=== PATIENT | female | born 1945 | race Caucasian/White ===

== ENCOUNTER → 2019-01-29 | Outpatient (CLI) | payer MEDICARE, BC ==
--- NOTE | 2019-01-29 14:25 | CR ---
[id number] RAD/DEXA Scan Hip Pelvis Spine EXAM: DEXA INDICATION: Postmenopausal female with history of osteoporosis. COMPARISON: April 05, 2017. DISCUSSION: Bone mineral density in the left radius 33% is 0.407 gm/square cm corresponding to a T score of -5.3. This has increased 13.7% relative to the previous examination. Bone mineral density in both femoral necks is 0.622 gm/square cm corresponding to a T score of -3.0. Bone mineral density in both hips is 0.642 gm/square cm corresponding to a T score of -2.9. The total hip densities of increased 4.7 percent relative to the prior study. The calculated 10 year risk of major osteoporotic fracture is 27% and of hip fracture is 10.6%. The hips were not assessed. IMPRESSION: 1. Osteoporotic bone mineral density. 2. Interval increase in the forearm and hip densities Jeffery Nava MD 01/29/19 4727 Thank you for allowing us to participate in the care of your patient.
== END ==
LOC: VM.DI 13:10
PROVIDERS: ATTEND Family Medicine
DX: M81.0 Age-related osteoporosis without current pathological fracture (principal)
CPT/HCPCS: 77080

== ENCOUNTER 2019-02-05 12:05 | Emergency (ER) | payer MEDICARE, BC ==
[2019-02-05] MEDS ORDERED: Sodium Chloride 0.9% 1,000 ML IV ONE (12:52)
[2019-02-05 13:26] LABS: CHLORIDE,CL 96 mmol/L (98-107); SODIUM,NA 130 mmol/L (136-145)
[2019-02-05 13:27] LABS: ANION GAP 12.8 mmol/L (10-20)
[2019-02-05 13:39] VITALS: BP 111/41
--- NOTE | 2019-02-05 13:47 | EDM.PDOC ---
ED HPI GENERAL MEDICAL PROBLEM - General Stated Complaint: Dizziness Time Seen by Provider: 02/05/19 12:25 Source of Information: Reports: Patient, Family History Limitations: Reports: No Limitations - History of Present Illness INITIAL COMMENTS - FREE TEXT/NARRATIVE: Pt presents with c/o weakness and dizziness. Started today. pt with no other complaints at this time. Onset: Today Location: Reports: Head Improves with: Reports: None Worsens with: Reports: None Treatments MANAGER STAR: Reports: EKG, IV/IO - Related Data Allergies Allergy/AdvReac Type Severity Reaction Status Date / Time buspirone HCl [From BuSpar] Allergy Cannot Verified 02/05/19 13:18 Remember metformin Allergy Cannot Verified 02/05/19 13:18 Remember atorvastatin calcium AdvReac Muscle Verified 02/05/19 13:18 [From Lipitor] Weakness codeine AdvReac Nausea and Verified 02/05/19 13:18 Vomiting hydrocodone AdvReac Hallucinati Verified 02/05/19 13:18 ons Home Meds: Home Meds Albuterol Sulfate [Albuterol Sulfate HFA] 2 puff INH ASDIRECTED PRN 07/15/13 [ History] Aspirin [Halfprin] 81 mg PO DAILY 07/15/13 [History] Lisinopril [Zestril] 10 mg PO DAILY 07/15/13 [History] Nitroglycerin [Nitrostat] 0.4 mg SL ASDIRECTED PRN 07/15/13 [History] Pioglitazone [Actos] 30 mg PO DAILY 07/15/13 [History] ALPRAZolam [Xanax] 0.25 mg PO BID PRN #0 07/18/13 [Rx] Cyanocobalamin (Vitamin B-12) [B-12] 1,000 mcg PO DAILY 04/05/15 [History] Montelukast [Singulair] 10 mg PO BEDTIME 04/05/15 [History] Denosumab [Prolia] 1 Q6M 04/08/18 [History] Gabapentin [Neurontin] 1 cap PO BID 04/08/18 [History] Ipratropium [Atrovent 0.06% Nasal [place]] 2 sprays 04/08/18 [History] Cetirizine [ZyrTEC] 10 mg PO DAILY 02/05/19 [History] Rosuvastatin Calcium [Crestor] 40 mg PO DAILY 02/05/19 [History] Umeclidinium [place] [Incruse Ellipta*] 1 puff IH DAILY 02/05/19 [History] hydroCHLOROthiazide [Hydrochlorothiazide] 25 mg PO DAILY 02/05/19 [History] tiZANidine HCl [Zanaflex] 2 mg PO TID PRN 02/05/19 [History] Past Medical History HEENT History: Reports: Cataract Cardiovascular History: Reports: CAD, Heart Failure, High Cholesterol, Hypertension, SOB on Exertion Other Cardiovascular History: valvular heart disease, mild carotid disease, thoracic aortic aneurysm without rupture Respiratory History: Reports: Asthma, COPD Gastrointestinal History: Reports: Colon Polyp Other Genitourinary History: acute kidney injury 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 Neurological History: Reports: Other (See Below) Other Neuro History: impaired cognition, insomnia Psychiatric History: Reports: Anxiety Endocrine/Metabolic History: Reports: Diabetes, Type II, Osteoporosis, Vitamin D Deficiency Other Endocrine/Metabolic History: Not treated Hematologic History: Other Hematologic History: vitamin D deficiency Oncologic (Cancer) History: Reports: None Dermatologic History: Reports: Other (See Below) Other Dermatologic History: pigmented skin lesion - Past Surgical History HEENT Surgical History: Reports: Cataract Surgery Cardiovascular Surgical History: Reports: Valve Replacement Other Cardiovascular Surgeries/Procedures: aortic root valve replacement; 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; reexporation for postop hemorrhage, pre and post op stroke; thoracic aortic aneuysm repair GI Surgical History: Reports: Colonoscopy Female Surgical History: Reports: Tubal Ligation Endocrine Surgical History: Reports: None Neurological Surgical History: Reports: Vertebroplasty Social & Family History - Tobacco Use Smoking Status *Q: Never Smoker ED ROS GENERAL - Review of Systems Review Of Systems: See Below Constitutional: Reports: Weakness HEENT: Reports: No Symptoms Respiratory: Reports: No Symptoms Cardiovascular: Reports: No Symptoms Endocrine: Reports: No Symptoms GI/Abdominal: Reports: No Symptoms : Reports: No Symptoms Musculoskeletal: Reports: No Symptoms Neurological: Reports: Dizziness ED EXAM, DIZZINESS - Physical Exam Exam: See Below Text/Narrative:: Pt via ems in no distress at this time. Had recieved 250 cc fluid in the field, no improvement ekg SR, labs noted slight dehydration after 1500 cc nacl pt is feeling better no dizziness at this time. PT instructed to rest today, continue hydration, follow up with pcp for continued care Exam Limited By: No Limitations General Appearance: Alert, WD/WN, No Apparent Distress Eye Exam: Bilateral Eye: Normal Inspection Ears: Normal External Exam, Normal Canal, Hearing Grossly Normal, Normal TMs Nose: Normal Inspection, Normal Mucosa, No Blood Throat/Mouth: Normal Inspection Head Exam: Atraumatic, Normocephalic Neck: Normal Inspection, Supple, Non-Tender Respiratory/Chest: No Respiratory Distress, Lungs Clear, Normal Breath Sounds, No Accessory Muscle Use, Chest Non-Tender Cardiovascular: Normal Peripheral Pulses, Regular Rate, Rhythm GI/Abdominal: Normal Bowel Sounds, Soft, Non-Tender Neurological: Alert, Normal Mood/Affect, Normal Dorsiflexion, CN II-XII Intact Course - Vital Signs Last Recorded V/S: Last Vital Signs Temp 36.2 C 02/05/19 12:10 Pulse 65 02/05/19 13:38 Resp 16 02/05/19 13:38 BP 111/41 L 02/05/19 13:38 Pulse Ox 96 02/05/19 13:38 - Orders/Labs/Meds Orders: Active Orders 24 hr Category Date Time Status EKG 12 Lead [EKG Documentation Completion] [RC] STAT Care 02/05/19 12:51 Ordered UA RFX FILEMON AND CULT IF INDIC [URIN] Stat Lab 02/05/19 12:44 Ordered Sodium Chloride 0.9% @ Wide Open(1,000ml) Med 02/05/19 12:52 Ordered Sodium Chloride 0.9% [Normal Saline] 1,000 ml IV ONETIME Medication Orders Sodium Chloride (Normal Saline) 1,000 mls @ 999 mls/hr IV ONETIME ONE Stop: 02/05/19 13:52 Last Admin: 02/05/19 12:10 Dose: 999 mls/hr Labs: Laboratory Tests 02/05/19 02/05/19 Range/Units 12:55 12:55 WBC 5.2 (4.0-10.0) x10^3/uL RBC 3.63 L (4.00-5.50) x10^6/uL Hgb 11.0 L D (12.0-16.0) g/dL Hct 32.7 L (33.0-47.0) % MCV 90.1 D (78.0-93.0) fL MCH 30.3 (26.0-32.0) pg MCHC 33.6 (32.0-36.0) g/dL RDW Coeff of Rizwan 14.9 (10.0-15.0) % Plt Count 163 (130-400) x10^3/uL Neut % (Auto) 70.9 (50.0-80.0) % Lymph % (Auto) 14.0 L (25.0-50.0) % [place] % (Auto) 10.7 (2.0-11.0) % Eos % (Auto) 3.8 (0.0-4.0) % Baso % (Auto) 0.6 (0.2-1.2) % Sodium 130 L (136-145) mmol/L Potassium 4.8 (3.5-5.1) mmol/L Chloride 96 L (98-107) mmol/L Carbon Dioxide 26 (21-32) mmol/L Anion Gap 12.8 (10-20) mmol/L BUN 33 H (7-18) mg/dL Creatinine 1.4 H (0.55-1.02) mg/dL Est Cr Clr Drug Dosing TNP Estimated GFR (MDRD) 37 Glucose 112 H (74-106) mg/dL Calcium 7.8 L (8.5-10.1) mg/dL Corrected Calcium 8.28 L (8.5-10.1) mg/dL Total Bilirubin 0.9 (0.2-1.0) mg/dL AST 20 (15-37) U/L ALT 15 (14-59) U/L Alkaline Phosphatase 86 (46-116) U/L Total Protein 6.2 L (6.4-8.2) g/dL Albumin 3.4 (3.4-5.0) g/dL Globulin 2.8 Albumin/Globulin Ratio 1.21 Meds: Medications Generic Name Dose Route Start Last Admin Trade Name Freq PRN Reason Stop Dose Admin Sodium Chloride 1,000 mls @ 999 mls/hr 02/05/19 12:52 02/05/19 12:10 Normal Saline IV 02/05/19 13:52 999 mls/hr ONETIME ONE Administration Departure - Departure Time of Disposition: 13:54 Disposition: Home, Self-Care 01 Condition: Good Clinical Impression: Dehydration - Discharge Information *PRESCRIPTION DRUG MONITORING PROGRAM REVIEWED*: Not Applicable *COPY OF PRESCRIPTION DRUG MONITORING REPORT IN PATIENT DELL: Not Applicable Instructions: Dehydration, Adult, [id number] Referrals: May Pritchard MD [Primary Care Provider] - - My Orders Last 24 Hours: My Active Orders 02/05/19 12:44 UA RFX FILEMON AND CULT IF INDIC [URIN] Stat 02/05/19 12:51 EKG 12 Lead [EKG Documentation Completion] [RC] STAT 02/05/19 12:52 Sodium Chloride 0.9% @ Wide Open(1,000ml) Sodium Chloride 0.9% [Normal Saline] 1 ,000 ml IV ONETIME - Assessment/Plan Last 24 Hours: My Active Orders 02/05/19 12:44 UA RFX FIELMON AND CULT IF INDIC [URIN] Stat 02/05/19 12:51 EKG 12 Lead [EKG Documentation Completion] [RC] STAT 02/05/19 12:52 Sodium Chloride 0.9% @ Wide Open(1,000ml) Sodium Chloride 0.9% [Normal Saline] 1 ,000 ml IV ONETIME
== END 2019-02-05 14:05 | disposition home or self-care (01) ==
LOC: VM.ED 12:05
DX: E86.0 Dehydration (principal); I11.0 Hypertensive heart disease with heart failure; I50.9 Heart failure, unspecified; E11.9 Type 2 diabetes mellitus without complications; F41.9 Anxiety disorder, unspecified; J45.909 Unspecified asthma, uncomplicated; E78.00 Pure hypercholesterolemia, unspecified; Z88.5 Allergy status to narcotic agent; Z79.82 Long term (current) use of aspirin; Z79.51 Long term (current) use of inhaled steroids; Z79.899 Other long term (current) drug therapy; Z98.51 Tubal ligation status; Z88.8 Allergy status to other drugs, medicaments and biological substances
CPT/HCPCS: 36415; 80053; 85025; 93005; 96360; 99284; J7030

== ENCOUNTER 2019-02-11 13:28 | Emergency (ER) | payer MEDICARE, BC ==
[2019-02-11] MEDS ORDERED: Sodium Chloride 0.9% 500 ML IV ONE (13:36)
--- NOTE | 2019-02-11 13:42 | EDM.PDOC ---
ED HPI GENERAL MEDICAL PROBLEM - General Chief Complaint: Cardiovascular Problem Stated Complaint: WEEK, HIGH BP Time Seen by Provider: 02/11/19 13:30 Source of Information: Reports: Patient, EMS, Family History Limitations: Reports: No Limitations - History of Present Illness INITIAL COMMENTS - FREE TEXT/NARRATIVE: Patient states approximately one hour ago at home she had a dizziness episode lasted a few minutes upon standing up she felt like the room was spinning lasted maybe a few seconds to maybe a minute. She states this is happened about a week ago which she was worked up for in the ER here. She was discharged at that visit and has not followed up with her primary care provider. She also states her blood pressure was in the 70s per the patient via EMS. Patient states she got up normal this morning at breakfast has had one glass of water. She is went about her normal routine cleaning house and is felt fine until this occurred. She states she felt fine only for a few seconds she denies any chest pain shortness of breath loss of consciousness headache no vision changes no nausea vomiting diarrhea abdominal pain no black or bloody stools has been eating fine Just as dizziness and some generalized weakness. Associated Symptoms: Denies: Confusion, Chest Pain, Diaphoresis, Fever/Chills, Headaches, Loss of Appetite, Nausea/Vomiting, Shortness of Breath, Syncope - Related Data Allergies Allergy/AdvReac Type Severity Reaction Status Date / Time buspirone HCl [From BuSpar] Allergy Cannot Verified 02/11/19 14:36 Remember metformin Allergy Cannot Verified 02/11/19 14:36 Remember atorvastatin calcium AdvReac Muscle Verified 02/11/19 14:36 [From Lipitor] Weakness codeine AdvReac Nausea and Verified 02/11/19 14:36 Vomiting hydrocodone AdvReac Hallucinati Verified 02/11/19 14:36 ons Home Meds: Home Meds Albuterol Sulfate [Albuterol Sulfate HFA] 2 puff INH Q4H PRN 07/15/13 [History] Aspirin [Halfprin] 81 mg PO DAILY 07/15/13 [History] Lisinopril [Zestril] 20 mg PO DAILY 07/15/13 [History] Nitroglycerin [Nitrostat] 0.4 mg SL ASDIRECTED PRN 07/15/13 [History] Pioglitazone [Actos] 30 mg PO DAILY 07/15/13 [History] ALPRAZolam [Xanax] 0.25 mg PO BID PRN #0 07/18/13 [Rx] Cyanocobalamin (Vitamin B-12) [B-12] 1,000 mcg PO DAILY 04/05/15 [History] Montelukast [Singulair] 10 mg PO BEDTIME 04/05/15 [History] Denosumab [Prolia] 60 mg SQ Q6M 04/08/18 [History] Gabapentin [Neurontin] 1 cap PO BID 04/08/18 [History] Ipratropium [Atrovent 0.06% Nasal [place]] 2 sprays NASBOTH BID 04/08/18 [History] Cetirizine [ZyrTEC] 10 mg PO DAILY 02/05/19 [History] Rosuvastatin Calcium [Crestor] 40 mg PO DAILY 02/05/19 [History] Umeclidinium [place] [Incruse Ellipta*] 1 puff IH DAILY 02/05/19 [History] hydroCHLOROthiazide [Hydrochlorothiazide] 25 mg PO DAILY 02/05/19 [History] tiZANidine HCl [Zanaflex] 2 mg PO TID PRN 02/05/19 [History] Past Medical History HEENT History: Reports: Cataract Cardiovascular History: Reports: CAD, Heart Failure, High Cholesterol, Hypertension, SOB on Exertion Other Cardiovascular History: valvular heart disease, mild carotid disease, thoracic aortic aneurysm without rupture Respiratory History: Reports: Asthma, COPD Gastrointestinal History: Reports: Colon Polyp Other Genitourinary History: acute kidney injury 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 Neurological History: Reports: Other (See Below) Other Neuro History: impaired cognition, insomnia Psychiatric History: Reports: Anxiety Endocrine/Metabolic History: Reports: Diabetes, Type II, Osteoporosis, Vitamin D Deficiency Other Endocrine/Metabolic History: Not treated Hematologic History: Other Hematologic History: vitamin D deficiency Oncologic (Cancer) History: Reports: None Dermatologic History: Reports: Other (See Below) Other Dermatologic History: pigmented skin lesion - Past Surgical History HEENT Surgical History: Reports: Cataract Surgery Cardiovascular Surgical History: Reports: Valve Replacement Other Cardiovascular Surgeries/Procedures: aortic root valve replacement; 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; reexporation for postop hemorrhage, pre and post op stroke; thoracic aortic aneuysm repair GI Surgical History: Reports: Colonoscopy Female Surgical History: Reports: Tubal Ligation Endocrine Surgical History: Reports: None Neurological Surgical History: Reports: Vertebroplasty ED ROS GENERAL - Review of Systems Review Of Systems: See Below Constitutional: Reports: Weakness. Denies: No Symptoms, Fever, Chills, Diaphoresis, Decreased Appetite, Weight Loss HEENT: Reports: Vertigo, Other (Denies ringing and roaring a whistling in the ears). Denies: Ear Discharge, Eye Pain, Nose Pain, Sinus Problem, Throat Pain, Vision Change Respiratory: Reports: No Symptoms Cardiovascular: Reports: No Symptoms. Denies: Dyspnea on Exertion, Edema, Lightheadedness, Palpitations, PND, Syncope Endocrine: Reports: No Symptoms GI/Abdominal: Reports: No Symptoms : Reports: No Symptoms Musculoskeletal: Reports: No Symptoms Skin: Reports: No Symptoms Neurological: Reports: Dizziness, Weakness. Denies: Confusion, Headache, Numbness, Paresthesia, Pre-Existing Deficit, Seizure, Syncope, Tingling, Trouble Speaking, Difficulty Walking, Gait Disturbance Psychiatric: Reports: No Symptoms Hematologic/Lymphatic: Reports: No Symptoms Immunologic: Reports: No Symptoms ED EXAM, DIZZINESS - Physical Exam Exam: See Below Exam Limited By: No Limitations General Appearance: Alert, WD/WN, No Apparent Distress Eye Exam: Bilateral Eye: EOMI, PERRL Ears: Normal External Exam, Normal Canal, Hearing Grossly Normal, Normal TMs. No: Auricular Erythema Nose: Normal Inspection, Normal Mucosa, No Blood Throat/Mouth: Normal Inspection, Normal Lips, Normal Teeth, Normal Gums, Normal Oropharynx, Normal Voice, No Airway Compromise Head Exam: Atraumatic Vertigo: No: worsens with head to L Neck: Normal Inspection, Supple, Non-Tender, Full Range of Motion. No: Limited Range of Motion Respiratory/Chest: No Respiratory Distress, Lungs Clear, Normal Breath Sounds, No Accessory Muscle Use, Chest Non-Tender Cardiovascular: Normal Peripheral Pulses, Regular Rate, Rhythm, No Edema, No Gallop, No JVD, No Murmur, No Rub GI/Abdominal: Normal Bowel Sounds, Soft, Non-Tender, No Organomegaly, No Distention Neurological: Alert, Normal Mood/Affect, Normal Dorsiflexion, CN II-XII Intact, Normal Reflexes, No Motor/Sensory Deficits, Oriented x 3, Other (Cranial nerves II-12 are intact patient has 5 of 5 upper extremity and lower extremity with full range of motion equal business intelligence consultant negative pronator swelling normal facial sensation) Extremities: Normal Inspection, Normal Range of Motion, Non-Tender, No Pedal Edema Psychiatric: Normal Affect, Normal Mood Skin Exam: Warm, Dry, Intact, Normal Color, No Rash Course - Vital Signs Text/Narrative:: CBC BMP EKG normal saline 500 mL bolus EKG normal sinus rhythm findings Sodium 123 she has been low in the past but this is the lowest of the visits BUN/creatinine is slightly elevated Patient states she is not willing to be admitted or stay for observation she only wants to go home and states she'll follow with her primary care provider the next 24-48 hours for the workup says she feels fine now blood pressure is normalized to 130/68 Says her sodium has been low in the past she is okay with following fluid restrictions through the night eating some salty crackers and potato chips and have it rechecked in the next day or 2 - Orders/Labs/Meds Orders: Active Orders 24 hr Category Date Time Status EKG Documentation Completion [RC] STAT Care 02/11/19 13:35 Active Sodium Chloride 0.9% [Normal Saline] 1,000 ml Med 02/11/19 14:20 Active IV ONETIME Medication Orders Sodium Chloride (Normal Saline) 1,000 mls @ 999 mls/hr IV ONETIME ONE Stop: 02/11/19 15:20 Last Admin: 02/11/19 13:45 Dose: 999 mls/hr Labs: Laboratory Tests 02/11/19 02/11/19 Range/Units 13:45 13:45 WBC 6.7 (4.0-10.0) x10^3/uL RBC 4.11 (4.00-5.50) x10^6/uL Hgb 12.5 D (12.0-16.0) g/dL Hct 36.2 (33.0-47.0) % MCV 88.1 (78.0-93.0) fL MCH 30.4 (26.0-32.0) pg MCHC 34.5 (32.0-36.0) g/dL RDW Coeff of Rizwan 14.6 (10.0-15.0) % Plt Count 214 (130-400) x10^3/uL Sodium 123 L* (136-145) mmol/L Potassium 4.9 (3.5-5.1) mmol/L Chloride 87 L (98-107) mmol/L Carbon Dioxide 27 (21-32) mmol/L Anion Gap 13.9 (10-20) mmol/L BUN 31 H (7-18) mg/dL Creatinine 1.9 H (0.55-1.02) mg/dL Est Cr Clr Drug Dosing TNP Estimated GFR (MDRD) 26 Glucose 138 H (74-106) mg/dL Calcium 9.3 D (8.5-10.1) mg/dL Meds: Medications Generic Name Dose Route Start Last Admin Trade Name Freq PRN Reason Stop Dose Admin Sodium Chloride 1,000 mls @ 999 mls/hr 02/11/19 14:20 02/11/19 13:45 Normal Saline IV 02/11/19 15:20 999 mls/hr ONETIME ONE Administration Discontinued Medications Generic Name Dose Route Start Last Admin Trade Name Freq PRN Reason Stop Dose Admin Sodium Chloride 500 mls @ 500 mls/hr 02/11/19 13:36 Normal Saline IV 02/11/19 14:35 ONETIME ONE Departure - Departure Time of Disposition: 14:35 Disposition: Home, Self-Care 01 Condition: Good Clinical Impression: Weakness, Hyponatremia - Discharge Information Instructions: Hyponatremia, Weakness, [id number] Referrals: May Pritchard MD [Primary Care Provider] - Forms: ED Department Discharge - My Orders Last 24 Hours: My Active Orders 02/11/19 13:35 EKG Documentation Completion [RC] STAT 02/11/19 14:20 Sodium Chloride 0.9% [Normal Saline] 1,000 ml IV ONETIME - Assessment/Plan Last 24 Hours: My Active Orders 02/11/19 13:35 EKG Documentation Completion [RC] STAT 02/11/19 14:20 Sodium Chloride 0.9% [Normal Saline] 1,000 ml IV ONETIME
[2019-02-11 14:06] LABS: CHLORIDE,CL 87 mmol/L (98-107)
[2019-02-11 14:10] LABS: ANION GAP 13.9 mmol/L (10-20); SODIUM,NA 123 mmol/L (136-145)
[2019-02-11] MEDS ORDERED: Sodium Chloride 0.9% 1,000 ML IV ONE (14:20)
[2019-02-11 21:35] VITALS: BP 132/70; PULSE 77
== END 2019-02-11 14:50 | disposition home or self-care (01) ==
LOC: VM.ED 13:28
DX: R53.1 Weakness (principal); E87.1 Hypo-osmolality and hyponatremia; I11.0 Hypertensive heart disease with heart failure; I50.9 Heart failure, unspecified; E11.9 Type 2 diabetes mellitus without complications; I25.10 Atherosclerotic heart disease of native coronary artery without angina pectoris; E78.00 Pure hypercholesterolemia, unspecified; J44.9 Chronic obstructive pulmonary disease, unspecified; F41.9 Anxiety disorder, unspecified; Z88.5 Allergy status to narcotic agent; Z88.8 Allergy status to other drugs, medicaments and biological substances; Z79.82 Long term (current) use of aspirin; Z79.899 Other long term (current) drug therapy
CPT/HCPCS: 36415; 80048; 85027; 93005; 96360; 99284; J7030